=== PATIENT | male | born 1990 | race African-American/Black ===

== ENCOUNTER 2016-10-16 09:50 | Emergency (ER) | payer OTHER ==
[2016-10-16 09:39] LABS: BASOPHILS 0.5 %; BASOPHILS ABSOLUTE 0.03 10/3/uL (0.0-0.16); EOSINOPHILS 1.8 %; HEMATOCRIT 41.2 % (40.0-51.0); HEMOGLOBIN 14.1 g/dL (13.6-17.8); IMMATURE GRANULOCYTES 0.2 %; IMMATURE GRANULOCYTES ABSOLUTE 0.01 10/3/uL (0.0-0.11); LYMPHOCYTES 22.6 %; LYMPHOCYTES ABSOLUTE 1.28 10/3/uL (0.67-4.30); MEAN CORPUS HGB CONC 34.2 g/dL (32.0-36.0); MEAN CORPUSCULAR HEMOGLOB 29.3 pg (26.0-34.0); MEAN CORPUSCULAR VOLUME 85.7 fL (80-100); MEAN PLATELET VOLUME 10.5 fL (9.2-13.0); MONOCYTES 16.1 %; MONOCYTES ABSOLUTE 0.91 10/3/uL (0.21-1.20); NEUTROPHILS 58.8 %; NEUTROPHILS ABSOLUTE 3.33 10/3/uL (2.02-8.40); PLATELET COUNT 233 10/3/uL (150-400); RED CELL COUNT 4.81 10/6/uL (4.7-6.1); WHITE BLOOD CELLS 5.7 10/3/uL (4.5-10.5)
[2016-10-16 09:42] LABS: MANUAL DIFF NO %
[2016-10-16 09:51] LABS: A/G RATIO 1.1 (0.7-1.9); ALBUMIN 3.5 G/DL (3.5-5.0); ALKALINE PHOSPHATASE 71 U/L (45-117); BUN (BLOOD UREA NITROGEN) 27 MG/DL (6-23); CALCIUM, SERUM 8.7 MG/DL (8.5-10.4); CHLORIDE, SERUM 109 MMOL/L (96-112); CO2 (CARBON DIOXIDE) 32 MMOL/L (24-34); CREATININE 0.87 MG/DL (0.70-1.30); DEPAKENE (VALPROIC ACID) 17.3 MCG/ML (50.0-100.0); GFR AFRICAN AMERICAN 139 ML/MIN (>=60); GFR NON AFRICAN AMERICAN 120 ML/MIN (>=60); GLOBULIN 3.1 G/DL (2.5-4.1); GLUCOSE, SERUM 54 MG/DL (60-99); POTASSIUM, SERUM 4.1 MMOL/L (3.5-5.3); SGOT(AST) 24 U/L (5-40); SGPT(ALT) 27 U/L (5-65); SODIUM, SERUM 146 MMOL/L (135-148); TOTAL BILIRUBIN 0.3 MG/DL (0-1.2); TOTAL PROTEIN 6.6 G/DL (6.0-8.5)
== END 2016-10-16 10:00 | disposition home or self-care (01) ==
LOC: ER 09:50
PROVIDERS: Hospitalist
DX: R53.83 Other fatigue (principal); T50.995A Adverse effect of other drugs, medicaments and biological substances, initial encounter
CPT/HCPCS: 80053; 80164; 85025; 93005; 99285